=== PATIENT | male | born 1975 | race African-American/Black ===

== ENCOUNTER 2018-05-29 11:57 | Emergency (ER) | payer BC ==
[~2018-05-29] VITALS: Ht 188 cm; Wt 128.0 kg
[2018-05-29] MEDS ORDERED: LIDOCAINE 5% PATCH TOP SCH (14:45)
[2018-05-29] MEDS ORDERED: IBUPROFEN 600MG TABLET PO ONE (14:45)
[2018-05-29 14:58] VITALS: BP 156/105
== END 2018-05-29 15:14 | disposition home or self-care (01) ==
LOC: ER 11:57
DX: M54.2 Cervicalgia (principal); I10 Essential (primary) hypertension
CPT/HCPCS: 99283